=== PATIENT | male | born 1970 | race African-American/Black ===

== ENCOUNTER 2022-11-24 11:27 | Emergency (ER) | payer OTHER ==
[~2022-11-24] VITALS: Ht 180.3 cm; Wt 127.0 kg
[2022-11-24 11:30] VITALS: BP_SYST 152
--- NOTE | 2022-11-24 11:41 | NUR ---
Placed in room 01 . Placed on monitoring and evaluation advisor, blood pressure machine and pulse oximeter. To gown for exam. Side rails up. Report given to YURI TRAYLOR AND YURI BECKER.
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
--- NOTE | 2022-11-24 11:50 | NUR ---
ER at bedside examining patient.
[2022-11-24] MEDS ORDERED: IBUPROFEN 800 MG TABLET PO ONE (12:30)
[2022-11-24] MEDS ORDERED: carisoprodoL 350 MG TABLET PO SCH (12:30)
--- NOTE | 2022-11-24 13:15 | NUR ---
Patient up to bathroom and discussed patient's wish to take the c-collar off. MD to go in and see patient momentarily. Will discharge after cleared by radiology.
[2022-11-24 13:53] VITALS: BP_SYST 132
--- NOTE | 2022-11-24 13:54 | NUR ---
Patient given written and verbal discharge instructions and verbalizes understanding. ER MD discussed with patient the results and treatment provided. Patient in stable condition. ID arm band removed. Rx of ULTRAM AND MOTRIN given. Patient educated on pain management and to follow up with PMD. Pain Scale 0/10. Opportunity for questions provided and answered. Medication side effect fact sheet provided.
== END 2022-11-24 13:54 | disposition home or self-care (01) ==
LOC: SED 11:27
DX: S13.4XXA Sprain of ligaments of cervical spine, initial encounter (principal); S33.5XXA Sprain of ligaments of lumbar spine, initial encounter; Z79.899 Other long term (current) drug therapy; V43.62XA Car passenger injured in collision with other type car in traffic accident, initial encounter; Y93.89 Activity, other specified; Y92.89 Other specified places as the place of occurrence of the external cause; Y99.8 Other external cause status
CPT/HCPCS: 72040-TC; 72100-TC; 99284